=== PATIENT | female | born 1955 ===

== ENCOUNTER → 2018-05-01 | Outpatient (CLI) | payer BC ==
--- NOTE | 2018-05-02 14:09 | MM ---
Reason for exam: screening (asymptomatic). Last mammogram was performed 5 years and 6 months ago. History: Patient is postmenopausal and is nulliparous. Physical Findings: A clinical breast exam by your physician is recommended on an annual basis and results should be correlated with mammographic findings. MG 3D Screening Mammo W/Cad Bilateral CC and MLO view(s) were taken. Prior study comparison: October 18, 2012, bilateral digital screening mammo w/CAD. December 22, 2008, mammogram, performed at [place]. The breast tissue is heterogeneously dense. This may lower the sensitivity of mammography. There are benign appearing round calcifications bilaterally. There is no discrete abnormality. ASSESSMENT: Benign, BI-RAD 2 RECOMMENDATION: Routine screening mammogram of both breasts in 1 year.
== END ==
LOC: RADMAMWWP 06:55
PROVIDERS: ATTEND Family Medicine
DX: Z12.31 Encounter for screening mammogram for malignant neoplasm of breast (principal)
CPT/HCPCS: 77063; 77067

== ENCOUNTER → 2018-05-01 | Outpatient (CLI) | payer BC ==
[2018-05-01 11:39] LABS: ALT 30 U/L (8-44); AST 43 U/L (13-35); Albumin/Globulin Ratio 1.38 (1.20-2.10); Alkaline Phosphatase 35 U/L (41-126); Bilirubin, Conjugated <0.20 mg/dL (0.20-0.40); Globulin 2.9 g/dL (2.1-3.7); Total Bilirubin 0.3 mg/dL (0.2-1.2); Total Protein 6.9 g/dL (6.2-8.2)
== END | disposition home or self-care (01) ==
LOC: LABWHC1 07:13
PROVIDERS: ATTEND Internal Medicine Critical Care Medicine
DX: J84.10 Pulmonary fibrosis, unspecified (principal)
CPT/HCPCS: 36415; 80076

== ENCOUNTER 2018-06-01 10:05 | Day surgery (SDC) | payer BC ==
[2018-05-31 09:27] VITALS: BMI 35.4
[~2018-06-01 10:05] MED LIST: LACTATED RINGERS 1,000 ML IV SCH; LIDOCAINE 1% 20 ML VIAL (10MG/ML) FOR IV START INTRADERMA PRN; MIDAZOLAM (PF) 2 MG/2 ML VIAL IV PRN
[2018-06-01 11:23] VITALS: RESP 16; TEMP 98.2
[2018-06-01] MEDS ORDERED: PROPOFOL 10 MG/ML 20 ML VIAL IV ONE (11:51)
--- NOTE | 2018-06-01 12:07 | P.PCN ---
Date of Procedure: 06/01/18 Procedure(s) Performed: BRIEF HISTORY: Patient is a 62-year-old pleasant white female, scheduled for an elective colonoscopy as a part of screening for colorectal neoplasia. PROCEDURE PERFORMED: Colonoscopy with snare polypectomy. PREOPERATIVE DIAGNOSIS: Screening for colon cancer. IV sedation per Anesthesia. PROCEDURE: After informed consent was obtained, the patient, was brought into the endoscopy unit. IV sedation was administered by Anesthesia under continuous monitoring. Digital rectal examination was normal. Initially the Olympus CF- 160 flexible video colonoscope was then inserted in the rectum, gradually advanced into the cecum without any difficulty. Careful examination was performed as the scope was gradually being withdrawn. Ileocecal valve and the appendiceal orifice were visualized and appeared normal. Prep was excellent. Mucosa of the cecum, appeared normal. In the ascending colon there was a 2-3 mm diminutive polyp removed by snare polypectomy. Rest of the ascending colon, transverse colon, appeared normal. The descending colon there was a 5 mm sessile polyp removed by snare polypectomy. Rest of the descending colon, sigmoid colon, and rectum appeared normal. Retroflexion was performed in the rectum and no lesions were seen. The patient tolerated the procedure well. IMPRESSION: 2-3 mm diminutive ascending colon polyp status post polypectomy 5 mm descending colon polyp status post polypectomy Rest of the colon appeared normal RECOMMENDATIONS: Findings of this examination were discussed with the patient as well as a family. She was advised to follow with the biopsy results. If the biopsy shows adenoma, she can have a repeat colonoscopy in 5 years.
[2018-06-01 12:26] VITALS: BP 111/68; PULSE 62
== END 2018-06-01 12:47 | disposition home or self-care (01) ==
LOC: ORWHC2ENDO 10:05
PROVIDERS: ATTEND Internal Medicine Gastroenterology
DX: Z12.11 Encounter for screening for malignant neoplasm of colon (principal); D12.2 Benign neoplasm of ascending colon; K63.5 Polyp of colon; F39 Unspecified mood [affective] disorder; K21.9 Gastro-esophageal reflux disease without esophagitis; J45.909 Unspecified asthma, uncomplicated; J84.10 Pulmonary fibrosis, unspecified; Z79.899 Other long term (current) drug therapy
CPT/HCPCS: 88305; 45385; J2704

== ENCOUNTER → 2018-10-16 | Outpatient (CLI) | payer BC ==
[2018-10-16 19:03] LABS: ALT 22 U/L (8-44); AST 32 U/L (13-35); Albumin/Globulin Ratio 1.62 (1.60-3.17); Alkaline Phosphatase 36 U/L (41-126); Bilirubin, Conjugated <0.20 mg/dL (0.20-0.40); Globulin 2.6 g/dL (1.6-3.3); Total Bilirubin 0.4 mg/dL (0.3-1.2); Total Protein 6.8 g/dL (6.2-8.2)
== END | disposition home or self-care (01) ==
LOC: LABWHC1 12:30
PROVIDERS: ATTEND Internal Medicine Critical Care Medicine
DX: J84.10 Pulmonary fibrosis, unspecified (principal)
CPT/HCPCS: 36415; 80076

== ENCOUNTER → 2018-11-13 | Outpatient (CLI) | payer BC ==
--- NOTE | 2018-11-13 11:06 | CT ---
EXAMINATION TYPE: CT chest w con DATE OF EXAM: 11/13/2018 COMPARISON: CT chest September 30, 2015 HISTORY: Pulmonary Fibrosis CT DLP: 687 mGycm. Automated Exposure Control for Dose Reduction was Utilized. TECHNIQUE: CT scan of the thorax is performed following with IV Contrast, patient injected with 100 mL of Isovue 300. FINDINGS: LUNGS: There is interval progression of bilateral peripheral reticulation and fibrosis involving uppe r and lower lungs with areas of honeycombing in both bases just above diaphragm now present. No suspi cious focal consolidation is identified. No pleural effusion or pneumothorax is seen. No suspicious n ew masses. Stable 7 x 4 mm semisolid nodule right middle lung axial image 32. MEDIASTINUM: There are no greater than 1 cm hilar or mediastinal lymph nodes. No pericardial effusi on is seen. Mild cardiomegaly is felt present. There is persistent moderate to severe right atrial d ilatation redemonstrated. Consider underlying mitral valve pathology. Consider cardiac echo evaluatio n if this is not known finding. There are is single enlarged central pulmonary arteries as Main pulmo nary artery measures 3.0 cm in diameter on axial image 24, CT findings suggesting underlying pulmonar y hypertension. Adjacent ascending aorta measures up to 3.3 cm in diameter. OTHER: Moderate multilevel spurring in the thoracic spine is present. IMPRESSION: Interval progression of bilateral interstitial fibrosis from 2016 CT most prominent in th e lung bases where there is honeycombing now identified. No acute pulmonary process.
== END | disposition home or self-care (01) ==
LOC: RADCTMAIN 08:43
PROVIDERS: ATTEND Internal Medicine Critical Care Medicine
DX: J84.10 Pulmonary fibrosis, unspecified (principal)
CPT/HCPCS: 71260; Q9967

== ENCOUNTER → 2019-03-19 | Outpatient (CLI) | payer BC ==
[2019-03-19 18:02] LABS: ALT 23 U/L (8-44); AST 34 U/L (13-35); Albumin/Globulin Ratio 1.46 (1.60-3.17); Alkaline Phosphatase 38 U/L (41-126); Bilirubin, Conjugated <0.20 mg/dL (0.20-0.40); Globulin 2.8 g/dL (1.6-3.3); Total Bilirubin 0.4 mg/dL (0.2-1.2); Total Protein 6.9 g/dL (6.2-8.2)
== END | disposition home or self-care (01) ==
LOC: LABWHC1 10:08
PROVIDERS: ATTEND Internal Medicine Critical Care Medicine
DX: Z51.81 Encounter for therapeutic drug level monitoring (principal); Z79.899 Other long term (current) drug therapy
CPT/HCPCS: 36415; 80076

== ENCOUNTER → 2020-04-21 | Outpatient (CLI) | payer BC ==
[2020-04-21 11:16] LABS: ALT 13 U/L (4-34); AST 30 U/L (14-36); African American GFR (CKD) >90 (>60 ml/min/1.73 sqM); Alkaline Phosphatase 40 U/L (38-126); Anion Gap 7 mmol/L; Blood Urea Nitrogen 6 mg/dL (7-17); Calcium 9.1 mg/dL (8.4-10.2); Carbon Dioxide 26 mmol/L (22-30); Chloride 106 mmol/L (98-107); Glucose 95 mg/dL (74-99); Non-African American GFR(CKD) >90 (>60 ml/min/1.73 sqM); Potassium 4.6 mmol/L (3.5-5.1); Sodium 139 mmol/L (137-145); Total Bilirubin 0.4 mg/dL (0.2-1.3); Total Protein 7.7 g/dL (6.3-8.2)
[2020-04-21 11:25] LABS: Basophils % (A) 1 %; Eosinophils # (A) 0.3 k/uL (0-0.7); Eosinophils % (A) 5 %; HCT 41.7 % (34.0-46.0); HGB 13.1 gm/dL (11.4-16.0); Lymphocytes # (A) 0.9 k/uL (1.0-4.8); Lymphocytes % (A) 18 %; MCH 32.5 pg (25.0-35.0); MCHC 31.4 g/dL (31.0-37.0); MCV 103.5 fL (80.0-100.0); Macrocytosis Slight; Mean Platelet Volume 7.2; Monocytes # (A) 0.2 k/uL (0-1.0); Monocytes % (A) 5 %; Neutrophils # (A) 3.2 k/uL (1.3-7.7); Neutrophils % (A) 69 %; Platelet Count 190 k/uL (150-450); RBC 4.03 m/uL (3.80-5.40); RDW 14.2 % (11.5-15.5); WBC 4.7 k/uL (3.8-10.6)
--- NOTE | 2020-04-21 14:56 | CT ---
EXAMINATION TYPE: CT chest w con DATE OF EXAM: 04/21/2020 COMPARISON: CT chest 11/05/2018 HISTORY: follow up pulmonary fibrosis CT DLP: 513 mGycm Automated exposure control for dose reduction was used. CONTRAST: CT scan of the chest is performed with IV Contrast, patient injected with 100 mL of Isovue 300. FINDINGS: LUNGS: There is mild interval progression of bilateral reticular interstitial coarsening, interlobula r septal thickening, fibrosis, and honeycombing. Redemonstrated traction bronchiectasis. Right middle lobe 8 x 7 mm groundglass opacity (4:32) is unchanged versus 11/13/2018. No pleural effusion. No pneu mothorax. The tracheobronchial tree is patent. MEDIASTINUM/SOFT TISSUES: No axillary, hilar, or mediastinal lymphadenopathy greater than 1 cm. Mild cardiomegaly redemonstrated. No pericardial effusion. No thoracic aortic aneurysm. The main pulmonary arterial trunk is enlarged measuring up to 3.6 cm, previously 3.3 cm on 02/05/2019 comparison. UPPER ABDOMEN: Small hiatal hernia. No adrenal nodule. OSSEOUS: Degenerative changes of the spine. Decreased osseous mineralization IMPRESSION: 1. Mild interval progression of interstitial fibrosis and honeycombing versus 11/05/2018 CT comparison . Findings consistent with usual interstitial pneumonia (UIP). 2. Again interval enlargement of the main pulmonary artery, likely representing pulmonary arterial hy pertension.
== END | disposition home or self-care (01) ==
LOC: RADCTMAIN 10:22
PROVIDERS: ATTEND Internal Medicine Critical Care Medicine
DX: J84.10 Pulmonary fibrosis, unspecified (principal); I77.89 Other specified disorders of arteries and arterioles
CPT/HCPCS: 80053; 85025; 71260; 36415; Q9967

== ENCOUNTER → 2021-03-23 | Outpatient (CLI) | payer BC ==
--- NOTE | 2021-03-23 16:42 | CT ---
EXAMINATION TYPE: CT chest wo con DATE OF EXAM: 03/23/2021 COMPARISON: 04/21/2020 HISTORY: Interstitial lung disease. CT DLP: 165 mGycm, Automated exposure control for dose reduction was used. CONTRAST: None TECHNIQUE: Axial images were obtained at 1 mm thick sections at 10 mm intervals. This will limit po rtions of the examination which may not be visualized within the [id number]. Images were obtained in the prone and supine views. FINDINGS: Portion of the thyroid visualized is normal. There is extensive pulmonary fibrosis throughout the bilateral lung desai. Some peribronchial thicke myrtle is present. Bronchiectasis is not identified. This is compared to 04/21/2020. There appears to be significant progression of the pulmonary fibrosis over the interval. No enlarged mediastinal or hilar adenopathy is evident. Scattered small lymph nodes are evident with in the pretracheal space. The ascending aorta diameter at the level of the main pulmonary artery is 3 .9 cm. The main pulmonary artery diameter at the bifurcation is 3.[address] sections are obtained through the upper abdomen. Abdomen is essentially unremarkable. IMPRESSIONS: 1. Extensive pulmonary fibrosis throughout both lung desai significantly progressive from the compar abrbara study of April 2020.
== END | disposition home or self-care (01) ==
LOC: RADCTMAIN 15:27
PROVIDERS: ATTEND Internal Medicine Pulmonary Disease
DX: J84.10 Pulmonary fibrosis, unspecified (principal)
CPT/HCPCS: 71250

== ENCOUNTER → 2021-03-31 | Outpatient (CLI) | payer BC ==
--- NOTE | 2021-04-02 09:56 | MM ---
Reason for exam: screening (asymptomatic). Last mammogram was performed 2 years and 11 months ago. History: Patient is postmenopausal and is nulliparous. Took hormonal contraceptives for 20 years. Physical Findings: A clinical breast exam by your physician is recommended on an annual basis and results should be correlated with mammographic findings. MG 3D Screening Mammo W/Cad Bilateral CC and MLO view(s) were taken. Prior study comparison: May 01, 2018, bilateral MG 3d screening mammo w/cad. The breast tissue is heterogeneously dense. This may lower the sensitivity of mammography. There are benign appearing round calcifications bilaterally. There is no discrete abnormality. ASSESSMENT: Benign, BI-RAD 2 RECOMMENDATION: Routine screening mammogram of both breasts in 1 year.
== END | disposition home or self-care (01) ==
LOC: RADMAMWWP 15:14
PROVIDERS: ATTEND Family Medicine
DX: Z12.31 Encounter for screening mammogram for malignant neoplasm of breast (principal); Z78.0 Asymptomatic menopausal state
CPT/HCPCS: 77063; 77067

== ENCOUNTER 2021-06-17 11:03 | Inpatient (IN) | payer MEDICARE, BC ==
[2021-06-17] MEDS ORDERED: SODIUM CHLORIDE 0.9% 1,000 ML IV STA (11:47)
--- NOTE | 2021-06-17 11:53 | ED ---
General Adult HPI <Levon Lamb - Last Filed: 06/17/21 15:20> - General Source: patient, EMS, RN notes reviewed Mode of arrival: EMS Limitations: no limitations <Melony Shrestha - Last Filed: 06/18/21 01:15> - General Chief complaint: Shortness of Breath Stated complaint: SOB Time Seen by Provider: 06/17/21 11:19 - History of Present Illness Initial comments: 65-year-old female presents to the emergency department via EMS for evaluation of worsening dyspnea. Patient reports a history of pulmonary fibrosis and has had to increase her home oxygen by several liters over the course of the past few days. Patient states she is on the lung transplant list at [facility] where she was recently hospitalized and completed a short course of antibiotic and low dose oral steroid. Patient states she attempted to get a hold of her transplant team today, but they stated that to go to her nearest emergency Department as they are at capacity within their facility. Patient complains of increased fatigue, decreased appetite, and overall poor oral intake. Patient denies fever, chills, chest pain, abdominal pain, nausea, vomiting, diarrhea, dysuria, or hematuria. (Melony Shrestha) - Related Data Home Medications Medication Instructions Recorded Confirmed Albuterol Nebulized [Ventolin 2.5 mg INHALATION RT-QID PRN 05/31/18 06/17/21 Nebulized] Sertraline [Zoloft] 200 mg PO HS 05/31/18 06/17/21 Loratadine [Claritin] 10 mg PO DAILY 06/17/21 06/17/21 Multivitamins, Thera [Multivitamin 1 tab PO DAILY 06/17/21 06/17/21 (formulary)] Pantoprazole [Protonix] 40 mg PO DAILY 06/17/21 06/17/21 QUEtiapine XR [SEROquel XR] 150 mg PO HS 06/17/21 06/17/21 Sennosides/Docusate Sodium 1 tab PO HS 06/17/21 06/17/21 [Senna-S 8.6-50 mg Tablet] Allergies Allergy/AdvReac Type Severity Reaction Status Date / Time No Known Allergies Allergy Verified 06/17/21 12:30 Review of Systems ROS Other: All systems not noted in ROS Statement are negative. <Levon Lamb - Last Filed: 06/17/21 15:20> ROS Other: All systems not noted in ROS Statement are negative. <Melony Shrestha - Last Filed: 06/18/21 01:15> ROS Statement: Those systems with pertinent positive or pertinent negative responses have been documented in the HPI. Past Medical History Past Medical History: GERD/Reflux Additional Past Medical History / Comment(s): PULMONARY FIBROSIS History of Any Multi-Drug Resistant Organisms: None Reported Past Surgical History: Orthopedic Surgery Additional Past Surgical History / Comment(s): RT KNEE ARTHROSCOPY, Past Anesthesia/Blood Transfusion Reactions: No Reported Reaction Past Psychological History: Anxiety, Depression Past Alcohol Use History: Occasional Past Drug Use History: None Reported - Past Family History Brother(s) Family Medical History: Cancer Additional Family Medical History / Comment(s): LEUKEMIA mother Additional Family Medical History / Comment(s): from pulmonary fibrosis at age 74 <AaronchipMelony - Last Filed: 06/18/21 01:15> General Exam Limitations: no limitations General appearance: alert, other (Well-developed, fairly nourished female in no acute distress on 15 L via nonrebreather mask. Initial temperature 98.6, pulse 95, respirations 20, blood pressure 115/61, pulse ox 100% on nonrebreather.) Eye exam: Present: normal appearance, PERRL, EOMI. Absent: scleral icterus, conjunctival injection, periorbital swelling ENT exam: Present: mucous membranes dry Respiratory exam: Present: decreased breath sounds (Lung sounds more diminished on the right side compared with left. No adventitious sounds upon auscultation. Mild increased work of breathing, though patient denies distress at this time). Absent: wheezes, rales, rhonchi, stridor, chest wall tenderness, accessory muscle use Cardiovascular Exam: Present: regular rate, normal rhythm GI/Abdominal exam: Present: soft, normal bowel sounds. Absent: distended, tenderness, guarding, rebound, rigid Extremities exam: Present: normal inspection, full ROM, normal capillary refill. Absent: tenderness, pedal edema, calf tenderness Neurological exam: Present: alert, oriented X3 Psychiatric exam: Present: normal affect, normal mood Skin exam: Present: warm, dry, pallor <AaronchipMelony - Last Filed: 06/18/21 01:15> Course <Levon Lamb - Last Filed: 06/17/21 15:20> <Melony Shrestha - Last Filed: 06/18/21 01:15> Vital Signs 06/17/21 06/17/21 06/17/21 11:07 11:19 13:44 Temperature 98.6 F Pulse Rate 95 83 Respiratory 20 18 Rate Blood Pressure 108/60 O2 Sat by Pulse 100 60 L Oximetry 06/17/21 06/17/21 06/17/21 18:57 20:59 23:13 Temperature 97.6 F Pulse Rate 81 85 Respiratory 16 18 Rate Blood Pressure 129/65 128/78 138/71 O2 Sat by Pulse 94 L 95 Oximetry - Reevaluation(s) Reevaluation #1: 06/17/21 13:40 Spoke with MARY Ryan regarding admission. She will clarify with pulmonology. 06/17/21 14:00 This patient's care was assumed by my attending Dr. Lamb. (Melony Shrestha) Reevaluation #2: 06/17/21 15:22 CT of the chest was recommended by pulmonology, results pending. (Levon Lamb) Reevaluation #3: 06/17/21 15:22 Patient admitted to this institution awaiting transfer to [facility]. (Levon Lamb) Medical Decision Making - Lab Data Result diagrams: 06/17/21 12:24 06/17/21 12:24 <Levon Lamb - Last Filed: 06/17/21 15:20> - Lab Data Result diagrams: 06/17/21 12:24 06/17/21 12:24 - EKG Data EKG shows normal: sinus rhythm Rate: normal - Radiology Data Radiology results: report reviewed, image reviewed <Melony Shrestha - Last Filed: 06/18/21 01:15> - Medical Decision Making 65-year-old female with known pulmonary fibrosis presents with increased oxygen requirements. Patient has been using upwards of 30 L of oxygen at home over the past several days. She denies fever. Denies central chest pain. Patient had been in contact with the transplant team who requested that she be seen at local emergency department. Chest x-ray shows stable pulmonary fibrosis. I did discuss case with Dr. Cadet who is the patient's intake clerk. He does rec ommend transfer if available. I discussed case with the transfer team and Dr. Gallegos at [facility] in [place]. They will except transfer but her uncertain of when the patient will obtain a bed. She will be admitted to this institution awaiting transfer. Both the admitting team and Dr. Cadet are aware. (TamannaLevon dos santos) - Lab Data Lab Results 06/17/21 06/17/21 06/17/21 Range/Units 12:24 12:24 12:24 WBC 12.6 H (3.8-10.6) k/uL RBC 3.45 L (3.80-5.40) m/uL Hgb 10.8 L (11.4-16.0) gm/dL Hct 33.0 L (34.0-46.0) % MCV 95.7 (80.0-100.0) fL MCH 31.3 (25.0-35.0) pg MCHC 32.7 (31.0-37.0) g/dL RDW 12.9 (11.5-15.5) % Plt Count 232 (150-450) k/uL MPV 7.8 Neutrophils % 86 % Lymphocytes % 6 % Monocytes % 5 % Eosinophils % 2 % Basophils % 0 % Neutrophils # 10.9 H (1.3-7.7) k/uL Lymphocytes # 0.7 L (1.0-4.8) k/uL Monocytes # 0.6 (0-1.0) k/uL Eosinophils # 0.3 (0-0.7) k/uL Basophils # 0.0 (0-0.2) k/uL PT 10.4 (9.0-12.0) sec INR 1.0 (<1.2) APTT 22.3 (22.0-30.0) sec Sodium 136 L (137-145) mmol/L Potassium 4.2 (3.5-5.1) mmol/L Chloride 97 L (98-107) mmol/L Carbon Dioxide 33 H (22-30) mmol/L Anion Gap 6 mmol/L BUN 11 (7-17) mg/dL Creatinine 0.48 L (0.52-1.04) mg/dL Est GFR (CKD-EPI)AfAm >90 (>60 ml/min/1.73 sqM) Est GFR (CKD-EPI)NonAf >90 (>60 ml/min/1.73 sqM) Glucose 128 H (74-99) mg/dL Plasma Lactic Acid Siva (0.7-2.0) mmol/L Calcium 9.3 (8.4-10.2) mg/dL Magnesium 2.0 (1.6-2.3) mg/dL Total Bilirubin 0.4 (0.2-1.3) mg/dL AST 33 (14-36) U/L ALT 14 (4-34) U/L Alkaline Phosphatase 40 (38-126) U/L Troponin I (0.000-0.034) ng/mL NT-Pro-B Natriuret Pep pg/mL Total Protein 7.8 (6.3-8.2) g/dL Albumin 3.6 (3.5-5.0) g/dL 06/17/21 06/17/21 06/17/21 Range/Units 12:24 12:24 12:24 WBC (3.8-10.6) k/uL RBC (3.80-5.40) m/uL Hgb (11.4-16.0) gm/dL Hct (34.0-46.0) % MCV (80.0-100.0) fL MCH (25.0-35.0) pg MCHC (31.0-37.0) g/dL RDW (11.5-15.5) % Plt Count (150-450) k/uL MPV Neutrophils % % Lymphocytes % % Monocytes % % Eosinophils % % Basophils % % Neutrophils # (1.3-7.7) k/uL Lymphocytes # (1.0-4.8) k/uL Monocytes # (0-1.0) k/uL Eosinophils # (0-0.7) k/uL Basophils # (0-0.2) k/uL PT (9.0-12.0) sec INR (<1.2) APTT (22.0-30.0) sec Sodium (137-145) mmol/L Potassium (3.5-5.1) mmol/L Chloride (98-107) mmol/L Carbon Dioxide (22-30) mmol/L Anion Gap mmol/L BUN (7-17) mg/dL Creatinine (0.52-1.04) mg/dL Est GFR (CKD-EPI)AfAm (>60 ml/min/1.73 sqM) Est GFR (CKD-EPI)NonAf (>60 ml/min/1.73 sqM) Glucose (74-99) mg/dL Plasma Lactic Acid Siva 1.2 (0.7-2.0) mmol/L Calcium (8.4-10.2) mg/dL Magnesium (1.6-2.3) mg/dL Total Bilirubin (0.2-1.3) mg/dL AST (14-36) U/L ALT (4-34) U/L Alkaline Phosphatase (38-126) U/L Troponin I <0.012 (0.000-0.034) ng/mL NT-Pro-B Natriuret Pep 189 pg/mL Total Protein (6.3-8.2) g/dL Albumin (3.5-5.0) g/dL - EKG Data EKG Comments: EKG was obtained that 1119 and shows sinus rhythm with PVCs. Ventricular rate 83, MA interval 144, QRS duration 76, QT/QTc is 334/392. Interpretation abnormal ECG. (Melony Shrestha) - Radiology Data Two-view chest x-ray was obtained. Report was reviewed in its entirety. Impression per Dr. Kruse is diffuse interstitial pattern would be compatible with pulmonary fibrosis appear similar to the prior chest CT of 03/23/2021. (Melony Shrestha) Disposition Is patient prescribed a controlled substance at d/c from ED?: No Decision to Admit Reason: Admit from EC Decision Date: 06/17/21 Decision Time: 15:22 <Levon Lamb - Last Filed: 06/17/21 15:20> Is patient prescribed a controlled substance at d/c from ED?: No <Melony Shrestha - Last Filed: 06/18/21 01:15> Clinical Impression: Pulmonary fibrosis, Hypoxia Disposition: ADMITTED IP TO THIS HOSP Condition: Serious
--- NOTE | 2021-06-17 12:09 | XR ---
EXAMINATION TYPE: XR chest 2V DATE OF EXAM: 06/17/2021 COMPARISON: CT chest 03/23/2021 TECHNIQUE: PA and lateral views submitted. HISTORY: Shortness of breath FINDINGS: Diffuse interstitial pattern. Heart is enlarged. Hypertrophic and degenerative change the spine. Tiny pleural effusions with pleural thickening. No pneumothorax. Arthropathy of the shoulders. Diffuse os teopenia. IMPRESSION: 1. Diffuse interstitial pattern would be compatible with pulmonary fibrosis appears similar to the pr ior chest CT of 03/23/2021.
[2021-06-17 12:41] LABS: Basophils % (A) 0 %; Eosinophils # (A) 0.3 k/uL (0-0.7); Eosinophils % (A) 2 %; HGB 10.8 gm/dL (11.4-16.0); Lymphocytes # (A) 0.7 k/uL (1.0-4.8); Lymphocytes % (A) 6 %; MCH 31.3 pg (25.0-35.0); MCHC 32.7 g/dL (31.0-37.0); MCV 95.7 fL (80.0-100.0); Mean Platelet Volume 7.8; Monocytes # (A) 0.6 k/uL (0-1.0); Monocytes % (A) 5 %; Neutrophils # (A) 10.9 k/uL (1.3-7.7); Neutrophils % (A) 86 %; Platelet Count 232 k/uL (150-450); RBC 3.45 m/uL (3.80-5.40); RDW 12.9 % (11.5-15.5); WBC 12.6 k/uL (3.8-10.6)
[2021-06-17 12:51] LABS: Partial Thromboplastin Time 22.3 sec (22.0-30.0); Prothrombin Time 10.4 sec (9.0-12.0)
[2021-06-17 12:55] LABS: ALT 14 U/L (4-34); AST 33 U/L (14-36); African American GFR (CKD) >90 (>60 ml/min/1.73 sqM); Albumin 3.6 g/dL (3.5-5.0); Alkaline Phosphatase 40 U/L (38-126); Anion Gap 6 mmol/L; Blood Urea Nitrogen 11 mg/dL (7-17); Calcium 9.3 mg/dL (8.4-10.2); Carbon Dioxide 33 mmol/L (22-30); Chloride 97 mmol/L (98-107); Glucose 128 mg/dL (74-99); Non-African American GFR(CKD) >90 (>60 ml/min/1.73 sqM); Potassium 4.2 mmol/L (3.5-5.1); Sodium 136 mmol/L (137-145); Total Bilirubin 0.4 mg/dL (0.2-1.3); Total Protein 7.8 g/dL (6.3-8.2)
[2021-06-17] MEDS ORDERED: IPRATROPIUM-ALBUTEROL 3 ML NEB INHALATION STA (13:29)
[2021-06-17] MEDS ORDERED: NALOXONE 0.4 MG/ML 1 ML VIAL IV PRN (14:48)
--- NOTE | 2021-06-17 15:21 | CT ---
EXAMINATION TYPE: CT angio chest DATE OF EXAM: 06/17/2021 2:59 PM COMPARISON: 03/23/2021 HISTORY: Shortness of breath CT DLP: 246.4 mGycm Automated exposure control for dose reduction was used. CONTRAST: CTA scan of the thorax is performed with IV Contrast, patient injected with 100 mL of Isovue 370, pul monary embolism protocol. FINDINGS: Opacification of the pulmonary trunk is optimal. There is somewhat suboptimal evaluation of the subse gmental pulmonary arteries due to diffuse opacities. No large filling defects are seen in the pulmonary arteries. The main pulmonary artery diameter is 3. 5 cm. Intrathoracic aorta is nonaneurysmal. The upper abdominal aorta is within normal limits. Scattered groundglass opacities are seen right upper, right lower left lower lobes. This is superimposed on a background of fibrosis/honeycombing which has worsened in the interval. No pneumothorax or pleural effusion. Heart is mildly enlarged. No pericardial effusion seen. Prominent mediastinal lymph nodes are again seen slightly increased in the interval. No hilar adenopa thy Patent tracheobronchial tree with bronchiectasis has increased in the interval. No acute osseous abnormalities seen. [id number] degenerative changes are seen in the spine. Thyroid gland is not enlarged. There is a small gastroesophageal hiatal hernia. Esophagus is distende d with air. IMPRESSION: 1. NO DEFINITE PULMONARY ARTERIAL EMBOLISM, SUBOPTIMAL EVALUATION OF THE SUBSEGMENTAL PULMONARY ARTER IES DUE TO DIFFUSE OPACITIES, CANNOT EXCLUDE A SMALL NONOCCLUSIVE SUBSEGMENTAL PULMONARY EMBOLISM. 2. MULTIFOCAL PNEUMONIA SUPERIMPOSED ON A BACKGROUND OF PATTERN OF IDIOPATHIC PULMONARY FIBROSIS, THE FIBROSIS HAS WORSENED IN THE INTERVAL. 3. PULMONARY TRUNK DIAMETER 3.5 CM WHICH COULD BE SEEN WITH PULMONARY VASCULAR HYPERTENSION.
[2021-06-17] MEDS ORDERED: ALBUTEROL NEBULIZED 2.5 MG/3 ML INHALATION PRN (16:00)
--- NOTE | 2021-06-17 16:00 | P.CNPUL ---
History of Present Illness Consult date: 06/17/21 Reason for consult: dyspnea, hypoxemia History of present illness: 65-year-old here patient presented to the ED with worsening shortness of breath. The patient is well-known to me. The patient has IPF and the patient hasn't followed up with my office for several years regarding abortive fibrosis. She was seen at the ILD clinic at [facility] and [facility]. Unfortunately, the patient had progressive loss in lung function over the years and during her most recent evaluation back in April 2021, the patient's FVC was down to 62% of predicted and diffusion capacity was not to 30% of predicted and the patient was progressively getting worse and the patient was becoming action dependent and she was using oxygen between 2 and 4 L. She was losing weight. At that point, I referred her to the transplant center at [facility] the patient after an immediate evaluation that listed on the transplant list. Around 2 weeks ago, she was hospitalized at [facility] worsening shortness of breath and her oxidation got worse and the patient was discharged home on 10 L which was being delivered to her through 2 different concentrators. The patient came into our emergency department today and she was having worsening shortness of breath. Currently she is in the 100% nonrebreather facemask. Her chest x-ray showing pulmonary fibrosis. She is complaining of increased fatigue and diminished appetite and poor oral intake. For that reason, the patient will be hospitalized. I also contacted the tra nsplant team at [facility] and we made a request for to be transferred down to [facility]. She is currently accepted and she will be transferred once the room is available. Currently she is afebrile. She is hemodynamically stable. Was a cause of 12.6 with a hemoglobin of 10.8. Normal renal function with a BUN of 11 and creatinine 0.4. The patient's has normal LFTs, lactic acid level was at 1.2, troponins were negative and the proBNP level was 189. COVID 19 testing was sent and the results are still pending for now. No swelling in lower extremities. No angina. No palpitation. Comorbid conditions include IPF, anxiety, bipolar disorder and hyperlipidemia. Review of Systems Patient reports shortness of breath when walking but reports no chest pain and the patient's breathing is progressively getting worse and her oxygen requirements have gone significantly higher over this past month at least., no arm pain on exertion, no shortness of breath when lying down, no palpitations, and no known heart murmur. She reports cough and shortness of breath but reports no wheezing, no coughing up blood, and no sleep apnea. She reports arthralgi as/joint pain but reports no muscle aches, no muscle weakness, no back pain, and no swelling in the extremities; knee surgery-arthoroscopy. She reports fatigue. She reports no fever, no night sweats, no significant weight gain, no significant weight loss, and no exercise intolerance. She reports no dry eyes, no vision change, and no irritation. She reports no difficulty hearing and no ear pain. She reports no frequent nosebleeds, no nose problems, and no sinus problems. She reports no sore throat, no bleeding gums, no snoring, no dry mouth, no mouth ulcers, no oral abnormalities, and no teeth problems. She reports no abdominal pain, no nausea, no vomiting, no constipation, normal appetite, no diarrhea, not vomiting blood, no dyspepsia, and no GERD. She reports no incontinence, no difficulty urinating, no hematuria, and no increased frequency. She reports no abnormal mole, no jaundice, no rashes, and no laceration. She reports no loss of consciousness, no weakness, no numbness, no seizures, no dizziness, no migraines, no headaches, and no tremor. She reports no depression, no sleep disturbances, feeling safe in a relationship, no alcohol abuse, no anxiety, no hallucinations, and no suicidal thoughts. She reports no swollen glands, no bruising, and no excessive bleeding. She reports no runny nose, no sinus pressure, no itching, no hives, and no frequent sneezing. Past Medical History Past Medical History: GERD/Reflux Additional Past Medical History / Comment(s): Idiopathic pulmonary fibrosis, IPF, chronic anxiety, depression, bipolar disorder, hyperlipidemia, acid reflux, vitamin D deficiency, History of Any Multi-Drug Resistant Organisms: None Reported Past Surgical History: Orthopedic Surgery Additional Past Surgical History / Comment(s): RT KNEE ARTHROSCOPY, Past Anesthesia/Blood Transfusion Reactions: No Reported Reaction Past Psychological History: Anxiety, Depression Past Alcohol Use History: Occasional Past Drug Use History: None Reported - Past Family History Brother(s) Family Medical History: Cancer Additional Family Medical History / Comment(s): LEUKEMIA Medications and Allergies Home Medications Medication Instructions Recorded Confirmed Type Albuterol Nebulized [Ventolin 2.5 mg INHALATION RT-QID PRN 05/31/18 06/17/21 History Nebulized] Sertraline [Zoloft] 200 mg PO HS 05/31/18 06/17/21 History Loratadine [Claritin] 10 mg PO DAILY 06/17/21 06/17/21 History Multivitamins, Thera [Multivitamin 1 tab PO DAILY 06/17/21 06/17/21 History (formulary)] Pantoprazole [Protonix] 40 mg PO DAILY 06/17/21 06/17/21 History QUEtiapine XR [SEROquel XR] 150 mg PO HS 06/17/21 06/17/21 History Sennosides/Docusate Sodium 1 tab PO HS 06/17/21 06/17/21 History [Senna-S 8.6-50 mg Tablet] Allergies Allergy/AdvReac Type Severity Reaction Status Date / Time No Known Allergies Allergy Verified 06/17/21 12:30 Physical Exam Vitals: Vital Signs Temp Pulse Resp BP Pulse Ox 06/17/21 13:44 83 18 108/60 06/17/21 11:19 60 L 06/17/21 11:07 98.6 F 95 20 100 Intake and Output 06/17/21 06/17/21 06/17/21 06:59 14:59 22:59 Other: Weight 68.356 kg General Appearance no diaphoresis, dyspnea, pallor, or respiratory distress and speech not interrupted by breaths, not cachectic, well nourished, appears well, and obesity. The patient is currently on 100% on 100% nonrebreather facemask. Breathing is slightly labored. She is not using excessive muscle breathing. HEENT no pursed lip breathing, jugular venous distention, mucous membrane cyanosis, or perioral cyanosis and mallampati classification: class 1 and Mallampati Classification: Class 3. Chest no retractions, rhonchi, hyperinflation, barrel chest, sternocleidomastoid muscle contractions, supraclavicular retractions, intercostal retractions, prolonged expiratory wheezing, or decreased air movement and decreased air movement and (normal) adventitious sounds: rales / crackles: bilaterally: midlung desai; coarse crackles in the lung bases bilateral. Heart no right ventricular heave, distant heart sounds, or s3 gallop and (normal) jugular vein and vein: jugular venous distention: by 0cm. GI bowel sounds: hyperactive (borborygmi) and diminished or absent. Extremities no cyanosis, clubbing, or edema. Neurologic no somnolence, confusion, or decreased mental status. Assisstive Devices: ambulates with no assitive devices. Gait and Mobility: gait WNL and full weight bearing. Results - Laboratory Findings CBC and BMP: 06/17/21 12:24 06/17/21 12:24 PT/INR, D-dimer PT 10.4 sec (9.0-12.0) 06/17/21 12:24 INR 1.0 (<1.2) 06/17/21 12:24 Abnormal lab findings: Abnormal Labs 06/17/21 06/17/21 12:24 12:24 WBC 12.6 H RBC 3.45 L Hgb 10.8 L Hct 33.0 L Neutrophils # 10.9 H Lymphocytes # 0.7 L Sodium 136 L Chloride 97 L Carbon Dioxide 33 H Creatinine 0.48 L Glucose 128 H - Diagnostic Findings Chest x-ray: image reviewed Assessment and Plan Plan: 1. Acute on chronic hypoxic respiratory failure currently on 100% on 100% nonrebreather facemask. Noted the patient has Idiopathic pulmonary fibrosis - with rapid progression of the patient's pulmonary fibrosis with worsening oxyge nation and worsening in excess capacity and shortness of breath. Patient has been listed for lung transportation through a [facility] system. She was recently hospitalized at [facility] for worsening shortness of breath and she was discharged home on 10 L through 2 different concentrators.. Note that the patient's has had progressive loss in the lung function as reflected on her PFTs that were being monitored in my office on outpatient basis.. She has been treated with Esbriet on outpatient basis. 2 idiopathic pulmonary fibrosis 3 chronic Anxiety - Bipolar disorder 4. Hyperlipidemia Plan Admit this patient to the hospital pending transfer to [facility] as the patient has been listed at the transplant center at [facility] and the patient is considered to be a good candidate for lung transportation based on a progressive and rapid worsening of her IPF and progressive loss and oxygenation excess capacity. We'll put the patient on 100% nonrebreather facemask IV Solu Medrol 60 mg every 6 hours. Noted the patient has not responded to steroids in the past Obtain a CT angiogram Check pro calcitonin level Resume all medication will continue to follow. Prognosis poor baseline above- mentioned comorbidities. The family and the understood the situation.
[2021-06-17] MEDS ORDERED: MORPHINE SULFATE 2 MG/ML SYRINGE IVP PRN (17:33)
[2021-06-17] MEDS ORDERED: hydrOXYzine HCL 50 MG/ML 1 ML VIAL IM PRN (17:33)
[2021-06-17] MEDS: methylPREDNISolone SOD SUCCI 125 MG/2 ML VIAL IV SCH (19:07)
[2021-06-17] MEDS ORDERED: HYDROcodone/APAP 5-325MG 1 EACH TAB PO PRN (19:51)
[2021-06-17] MEDS ORDERED: ACETAMINOPHEN TAB 325 MG TAB PO PRN (19:51)
[2021-06-17] MEDS ORDERED: MELATONIN 3 MG TABLET PO PRN (19:51)
[2021-06-17] MEDS ORDERED: ONDANSETRON 4 MG/2 ML VIAL IVP PRN (19:51)
[2021-06-17] MEDS ORDERED: ALPRAZolam 0.25 MG TAB PO PRN (19:51)
--- NOTE | 2021-06-17 19:59 | P.HPIM ---
History of Present Illness H&P Date: 06/17/21 Patient is a 65-year-old female with idiopathic pulmonary fibrosis who follows at the ILD clinic at [facility] and [facility], GERD, dyslipidemia, vitamin D deficiency who presented do to worsening shortness of breath. She was recently hospitalized at [facility] about 2 weeks ago and had been discharged home on 10 L delivered through 2 different oxygen concentrator i s. On CT chest here she she was found to have multifocal pneumonia as well as increased pulmonary fibrosis. The transplant team at [facility] was contacted and the patient was accepted by Dr. Gallegos. However there is no beds currently. Due to anticipated long bed weight she was admitted here. On arrival she was found to be 60% on 10 L nasal cannula. Laboratory analysis showed a white blood cell count of 12.6, hemoglobin 10.8, sodium 136, potassium 4.2, COVID testing was negative. In the ER she was started on IV fluids, bronchodilators, and steroids. She was seen by pulmonary. Patient seen and examined at bedside. When she was discharged from [facility] on 05/27 she went home with 2 concentrators. Per the for the last 4 days he has had to use a Y connector for the double concentrators each at 5 L as well as putting out a second nasal cannula running at 5 L off of O2 tank. She was very winded, fatigue, and having a hard time staying awake. She immediately p erked up when her O2 sat improved. She denies any significant change in cough, though she has had slight more phlegm for 2 coughs yesterday producing quite a bit of mucus. She reports some nasal congestion which has gotten better off of the nasal cannula and on the nonrebreather mask. She denies any fevers or chills. She has had a low appetite for quite some time. She is incontinent of urine which happened about a month ago. She denies any nausea, vomiting, diarrhea. Pertinent positives and negatives as discussed in HPI, a complete review of systems was performed and all other systems are negative. General: non toxic, mild distress, appears at stated age Derm: warm, dry Head: atraumatic, normocephalic, symmetric Eyes: EOMI, no lid lag, anicteric sclera, pupils equal round reactive to light ENT: Nose and ears atraumatic, no thrush, no pharyngeal erythema Neck: No thyromegaly, no cervical lymphadenopathy, trachea midline, supple Mouth: no lip lesion, mucus membranes moist Cardiovascular: S1S2 reg, no murmur, positive posterior tibial pulse bilateral, no edema, capillary refill less than 2 seconds Lungs: Velcro crackles bilaterally, 3 word conversational dyspnea, sternal re tractions Abdominal: soft, nontender to palpation, no guarding, no appreciable organomegaly, normal bowel sounds Ext: no gross muscle atrophy, muscle strength muscle strength 5 out of 5 in all 4 extremities, no contractures Neuro: CN II-XI grossly intact, light touch intact all 4 extremities, finger to nose within normal limits, Psych: Alert, oriented, appropriate affect Assessment/plan: Acute Exacerbation of Idiopathic pulmonary fibrosis with rapid progression in a patient on the pulmonary transplant list Acute on chronic hypoxic respiratory failure -Appreciate pulmonary recommendations: Patient has not responded well to steroids in the past -Await pro-calcitonin level -Patient is currently awaiting bed at [facility] - Patient appears non-toxic without fevers. We'll delay antibiotics at this point. Sputum culture. -Continue with steroids and bronchodilators Anemia -Follow CBC -Transfuse if hemoglobin less than 8 -Check iron studies. Dyslipidemia-not chronically on medications, outpatient follow-up GERD-resume home PPI Vitamin D deficiency-outpatient follow-up The patient is admitted with an anticipated greater than 2 midnight stay for evaluation of acute exacerbation of idiopathy pulmonayr fibrosis Surrogate decision-maker: CODE STATUS:full DVT prophylaxis: [Lovenox] Discussed with: Patient, , Dr. Green, Dr. Cadet Anticipated discharge date: unknown Anticipated discharge place: await transfer to [facility] A total of 80 minutes was spent on the care of this complex patient more than 50% of the time was spent in counseling and care coordination. Past Medical History Past Medical History: GERD/Reflux Additional Past Medical History / Comment(s): Idiopathic pulmonary fibrosis, IPF, chronic anxiety, depression, bipolar disorder, hyperlipidemia, acid reflux, vitamin D deficiency, History of Any Multi-Drug Resistant Organisms: None Reported Past Surgical History: Orthopedic Surgery Additional Past Surgical History / Comment(s): RT KNEE ARTHROSCOPY, Past Anesthesia/Blood Transfusion Reactions: No Reported Reaction Past Psychological History: Anxiety, Depression Smoking Status: Never smoker Past Alcohol Use History: Occasional Past Drug Use History: None Reported - Past Family History Brother(s) Family Medical History: Cancer Additional Family Medical History / Comment(s): LEUKEMIA mother Additional Family Medical History / Comment(s): from pulmonary fibrosis at age 74 Medications and Allergies Home Medications Medication Instructions Recorded Confirmed Type Albuterol Nebulized [Ventolin 2.5 mg INHALATION RT-QID PRN 05/31/18 06/17/21 History Nebulized] Sertraline [Zoloft] 200 mg PO HS 05/31/18 06/17/21 History Loratadine [Claritin] 10 mg PO DAILY 06/17/21 06/17/21 History Multivitamins, Thera [Multivitamin 1 tab PO DAILY 06/17/21 06/17/21 History (formulary)] Pantoprazole [Protonix] 40 mg PO DAILY 06/17/21 06/17/21 History QUEtiapine XR [SEROquel XR] 150 mg PO HS 06/17/21 06/17/21 History Sennosides/Docusate Sodium 1 tab PO HS 06/17/21 06/17/21 History [Senna-S 8.6-50 mg Tablet] Allergies Allergy/AdvReac Type Severity Reaction Status Date / Time No Known Allergies Allergy Verified 06/17/21 12:30 Physical Exam Osteopathic Statement: *. No significant issues noted on an osteopathic structural exam other than those noted in the History and Physical/Consult. Vitals: Vital Signs Temp Pulse Resp BP Pulse Ox 06/17/21 18:57 81 16 129/65 94 L 06/17/21 13:44 83 18 108/60 06/17/21 11:19 60 L 06/17/21 11:07 98.6 F 95 20 100 Intake and Output 06/17/21 06/17/21 06/17/21 06:59 14:59 22:59 Other: Weight 68.356 kg Results CBC & Chem 7: 06/17/21 12:24 06/17/21 12:24 Labs: Abnormal Lab Results - Last 24 Hours (Table) 06/17/21 06/17/21 Range/Units 12:24 12:24 WBC 12.6 H (3.8-10.6) k/uL RBC 3.45 L (3.80-5.40) m/uL Hgb 10.8 L (11.4-16.0) gm/dL Hct 33.0 L (34.0-46.0) % Neutrophils # 10.9 H (1.3-7.7) k/uL Lymphocytes # 0.7 L (1.0-4.8) k/uL Sodium 136 L (137-145) mmol/L Chloride 97 L (98-107) mmol/L Carbon Dioxide 33 H (22-30) mmol/L Creatinine 0.48 L (0.52-1.04) mg/dL Glucose 128 H (74-99) mg/dL
[2021-06-17] MEDS ORDERED: SODIUM CHLORIDE 0.9% 1,000 ML IV SCH (20:00)
[2021-06-17] MEDS ORDERED: SENNOSIDES-DOCUSATE SODIUM 1 EACH TAB PO SCH (21:00)
[2021-06-17] MEDS ORDERED: SERTRALINE 100 MG TAB PO SCH (21:00)
[2021-06-18] MEDS: methylPREDNISolone SOD SUCCI 125 MG/2 ML VIAL IV SCH ×3 (02:42→11:25)
[2021-06-18 04:56] LABS: Glucose,Whole Blood 115 mg/dL (75-99)
[2021-06-18] MEDS ORDERED: PANTOPRAZOLE 40 MG TABLET PO SCH (07:30)
[2021-06-18] MEDS: QUEtiapine 25 MG TAB PO SCH ×2 (07:39)
[2021-06-18] MEDS ORDERED: ENOXAPARIN 30 MG/0.3 ML SYRINGE SQ SCH (09:00)
[2021-06-18 09:22] LABS: HCT 30.1 % (34.0-46.0); HGB 9.5 gm/dL (11.4-16.0); Hypochromasia Slight; MCH 30.7 pg (25.0-35.0); MCHC 31.6 g/dL (31.0-37.0); Mean Platelet Volume 7.6; Platelet Count 218 k/uL (150-450); RDW 13.4 % (11.5-15.5); WBC 7.9 k/uL (3.8-10.6)
[2021-06-18 09:36] LABS: African American GFR (CKD) >90 (>60 ml/min/1.73 sqM); Anion Gap 7 mmol/L; Blood Urea Nitrogen 9 mg/dL (7-17); Carbon Dioxide 29 mmol/L (22-30); Chloride 101 mmol/L (98-107); Glucose 126 mg/dL (74-99); Non-African American GFR(CKD) >90 (>60 ml/min/1.73 sqM); Potassium 4.3 mmol/L (3.5-5.1); Sodium 137 mmol/L (137-145)
--- NOTE | 2021-06-18 12:47 | P.DS ---
Providers Date of admission: 06/17/21 14:49 Expected date of discharge: 06/18/21 Attending physician: Becca Horta DO Consults: 06/17/21 14:49 Consult Physician Urgent Consulting Provider: Armando Cadet Consult Reason/Comments: Pulmonary fibrosis Do you want consulting provider notified?: Already Contacted Primary care physician: Yoandy Camilo Hospital Course: Discharge Diagnosis: Acute Exacerbation of Idiopathic pulmonary fibrosis with rapid progression in a patient on the pulmonary transplant list Acute on chronic hypoxic respiratory failure Anemia Dyslipidemia GERD Vitamin D deficiency Hospital Course: Patient is a 65-year-old female with idiopathic pulmonary fibrosis who follows at the ILD clinic at [facility] and [facility], GERD, dyslipidemia, vitamin D deficiency who presented do to worsening shortness of breath. She was recently hospitalized at [facility] about 2 weeks ago and had been discharged home on 10 L delivered through 2 different oxygen concentrator is. On CT chest here she she was found to have multifocal pneumonia as well as increased pulmonary fibrosis. The transplant team at [facility] was contacted and the patient was accepted by Dr. Gallegos. However there is no beds currently. Due to anticipated long bed weight she was admitted here. On arrival she was found to be 60% on 10 L nasal cannula. Laboratory analysis showed a white blood cell count of 12.6, hemoglobin 10.8, sodium 136, potassium 4.2, COVID testing was negative. In the ER she was started on IV fluids, bronchodilators, and steroids. She was seen by pulmonary. Admitted and placed on steroids and bronchodilators. He did have a blood sugar at [facility] on 06/18 and arrangements are made to transfer the patient successfully. Of note patient does not handle immediate release Seroquel and will need extended release. Patient seen and examined at bedside. No chest pain, breathing better than yesterday, No nasuea or vomiting. Vital signs reviewed and stable. General: non toxic, no distress, appears at stated age Derm: warm, dry Head: atraumatic, normocephalic, symmetric Eyes: EOMI, no lid lag, anicteric sclera Mouth: no lip lesion, mucus membranes moist Cardiovascular: S1S2 reg, no murmur, positive posterior tibial pulse bilateral, Lungs: fine velcro bilateral crackles, no rhonchi, no rales , + sternal retractions, + 3 word conversational dyspnea Abdominal: soft, nontender to palpation, no guarding, no appreciable organomegaly Ext: no gross muscle atrophy, no edema, no contractures Neuro: CN II-XI grossly intact, no focal neuro deficits Psych: Alert, oriented, appropriate affect A total of 35 minutes of time were spent preparing this complex discharge summary . Patient Condition at Discharge: Serious Plan - Discharge Summary Discharge Rx Participant: No New Discharge Prescriptions: No Action Albuterol Nebulized [Ventolin Nebulized] 2.5 mg INHALATION RT-QID PRN PRN Reason: Shortness Of Breath Sertraline [Zoloft] 200 mg PO HS Loratadine [Claritin] 10 mg PO DAILY QUEtiapine XR [SEROquel XR] 150 mg PO HS Pantoprazole [Protonix] 40 mg PO DAILY Multivitamins, Thera [Multivitamin (formulary)] 1 tab PO DAILY Sennosides/Docusate Sodium [Senna-S 8.6-50 mg Tablet] 1 tab PO HS Discharge Medication List Albuterol Nebulized [Ventolin Nebulized] 2.5 mg INHALATION RT-QID PRN 05/31/18 [History] Sertraline [Zoloft] 200 mg PO HS 05/31/18 [History] Loratadine [Claritin] 10 mg PO DAILY 06/17/21 [History] Multivitamins, Thera [Multivitamin (formulary)] 1 tab PO DAILY 06/17/21 [Histor y] Pantoprazole [Protonix] 40 mg PO DAILY 06/17/21 [History] QUEtiapine XR [SEROquel XR] 150 mg PO HS 06/17/21 [History] Sennosides/Docusate Sodium [Senna-S 8.6-50 mg Tablet] 1 tab PO HS 06/17/21 [His tory] Follow up Appointment(s)/Referral(s): Yoandy Camilo MD [Primary Care Provider] - 1-2 days Activity/Diet/Wound Care/Special Instructions: [facility]
[2021-06-18 14:04] VITALS: BMI 27.6
--- NOTE | 2021-06-18 14:21 | P.PN ---
Subjective Progress Note Date: 06/18/21 On today's evaluation of 06/18/2021, the patient remains in 100% nonrebreather facemask. No worsening shortness of breath. No fever. No chills. No sputum production. Upon further follow-up and investigation, the patient came back negative for COVID 19 testing. The pro calcitonin level was low at 0.05 and the patient a white cell count of 7.9 with hemoglobin of 9.5 and the rest of the electrodes in renal function was essentially within normal limits. Furthermore, the patient underwent a CT angiogram that showed no evidence of any pulmonary embolism. There was background pulmonary fibrosis consistent with IPF. There was some increased groundglass changes bilaterally consistent with acute lung injury or acute exacerbation of chronic IPF. The patient is currently on IV Solu-Medrol. Discussed the findings with a [facility] transplant team and the patient's is being transferred out today. Noted the patient has been listed in lung transportation. No other new complaints otherwise for now. Objective - Vital Signs Vital signs: Vital Signs Temp 96.9 F L 06/18/21 11:15 Pulse 76 06/18/21 11:15 Resp 19 06/18/21 11:15 BP 119/75 06/18/21 11:15 Pulse Ox 98 06/18/21 11:15 Intake & Output 06/17/21 06/18/21 06/18/21 18:59 06:59 18:59 Weight 68.356 kg 68.356 kg 68.356 kg Other: Voiding Method External Catheter External Catheter # Voids 1 - Exam General Appearance no diaphoresis, dyspnea, pallor, or respiratory distress and speech not interrupted by breaths, not cachectic, well nourished, appears well, and obesity. The patient is currently on 100% on 100% nonrebreather facemask. Breathing is slightly labored. She is not using excessive muscle breathing. HEENT no pursed lip breathing, jugular venous distention, mucous membrane cyanosis, or perioral cyanosis and mallampati classification: class 1 and Mallampati Classification: Class 3. Chest no retractions, rhonchi, hyperinflation, barrel chest, sternocleidomastoid muscle contractions, supraclavicular retractions, intercostal retractions, prolonged expiratory whe ezing, or decreased air movement and decreased air movement and (normal) adventitious sounds: rales / crackles: bilaterally: midlung desai; coarse crackles in the lung bases bilateral. Heart no right ventricular heave, distant heart sounds, or s3 gallop and (normal) jugular vein and vein: jugular venous distention: by 0cm. GI bowel sounds: hyperactive (borborygmi) and diminished or absent. Extremities no cyanosis, clubbing, or edema. Neurologic no somnolence, confusion, or decreased mental status. Assisstive Devices: ambulates with no assitive devices. Gait and Mobility: gait WNL and full weight bearing. - Labs CBC & Chem 7: 06/18/21 08:30 06/18/21 08:30 Labs: Abnormal Lab Results - Last 24 Hours (Table) 06/18/21 06/18/21 06/18/21 Range/Units 04:55 08:30 08:30 RBC 3.10 L (3.80-5.40) m/uL Hgb 9.5 L (11.4-16.0) gm/dL Hct 30.1 L (34.0-46.0) % Creatinine 0.36 L (0.52-1.04) mg/dL Glucose 126 H (74-99) mg/dL POC Glucose (mg/dL) 115 H (75-99) mg/dL Assessment and Plan Plan: 1. Acute on chronic hypoxic respiratory failure currently on 100% on 100% nonrebreather facemask. Noted the patient has Idiopathic pulmonary fibrosis - with rapid progression of the patient's pulmonary fibrosis with worsening oxygenation and worsening in excess capacity and shortness of breath. Patient has been listed for lung transportation through a [facility] system. She was recently hospitalized at [facility] for worsening shortness of breath and she was discharged home on 10 L through 2 different concentrators.. Note that the patient's has had progressive loss in the lung function as reflected on her PFTs that were being monitored in my office on outpatient basis.. She has been treated with Esbriet on outpatient basis. 2 idiopathic pulmonary fibrosis, with acute exacerbation of chronic IPF 3 chronic Anxiety - Bipolar disorder 4. Hyperlipidemia Plan Clinically the patient is stable CAT scan of the chest is consistent with acute exacerbation of IPF probably a component of acute lung injury which explains a progressive worsening in a respiratory status and oxygenation Continue IV Solu Medrol The pro calcitonin LEVEL IS LOW AND THERE IS NO NEED FOR ANTIBIOTIC TREATMENT AT THIS POINT IN TIM[facility] Resume all medication will continue to follow. Prognosis poor baseline above- mentioned comorbidities. The family and the understood the situation. Case was discussed with the transplant team and the patient will hopefully get transferred today.
[2021-06-18 15:26] VITALS: BP 126/65; PULSE 79; RESP 20; TEMP 97.3
[2021-06-18 16:38] LABS: Chol/HDL Ratio 3.07 Ratio; Iron 33 ug/dL (50-170); LDL Cholesterol,Calculated 82.4 mg/dL (0.0-131.0); Total Iron Binding Capacity 231 ug/dL (228-460); VLDL Calculation 10.04 mg/dL (5.00-40.00)
== END 2021-06-18 16:35 | DRG 196 ==
LOC: EC 11:03 → 3SCARD 14:49
PROVIDERS: ADMIT Internal Medicine; ATTEND Internal Medicine
DX: J84.112 Idiopathic pulmonary fibrosis (principal); J96.21 Acute and chronic respiratory failure with hypoxia; Z20.822 Contact with and (suspected) exposure to COVID-19; F41.9 Anxiety disorder, unspecified; D64.9 Anemia, unspecified; E55.9 Vitamin D deficiency, unspecified; K21.9 Gastro-esophageal reflux disease without esophagitis; E78.5 Hyperlipidemia, unspecified; F31.9 Bipolar disorder, unspecified; Z76.82 Awaiting organ transplant status; Z79.899 Other long term (current) drug therapy; Z80.6 Family history of leukemia
CPT/HCPCS: 36415; 71046; 71275; 80048; 80053; 80061; 82607; 82728; 83540; 83550; 83605; 83735; 83880; 84145; 84484; 85025; 85027; 85610; 85730; 87635; 93005; 99285